=== PATIENT | male | born 1945 | race Caucasian/White ===

== ENCOUNTER 2017-07-16 20:56 | Inpatient (IN) | payer OTHER, MEDICARE ==
[~2017-07-16] VITALS: Ht 182.9 cm; Wt 131.1 kg
[~2017-07-16 20:56] MED LIST: CYCLOBENZAPRINE10 MG PO; CYMBALTA60 MG PO; GABAPENTIN300 MG PO; LANTUS SOL100 UNIT/1 SUB-Q; LASIX20 MG PO; LISINOPRIL10 MG PO; METFORMIN HCL1000 MG PO; METOPROLOL TART25 MG PO; NORCO 5-325 TA1 EACH PO; NOVOLOG FL100 UNIT/1 SUB-Q; OMEPRAZOLE20 MG PO
[2017-07-16] MEDS ORDERED: ACETAMINOPHEN500 M1 PO (21:52)
[2017-07-17] MEDS ORDERED: CIPROFLOXACIN500 MG PO (14:44)
[2017-07-17] MEDS ORDERED: VENTOLIN HFA18 GM INH (14:53)
[2017-07-17] MEDS ORDERED: ASCORBIC ACID250 MG PO (14:53)
[2017-07-17] MEDS ORDERED: ASPIR 8181 MG PO (14:54)
[2017-07-17] MEDS ORDERED: BACITRACIN3.5 GM TOP (14:55)
[2017-07-17] MEDS ORDERED: CITRUS CALCIUM +1 EA PO (14:55)
[2017-07-17] MEDS ORDERED: SANTYL30 GM TOP (14:58)
[2017-07-17] MEDS ORDERED: B-12500 MCG PO (15:01)
[2017-07-17] MEDS ORDERED: BENADRYL25 MG PO (15:02)
[2017-07-17] MEDS ORDERED: DOK100 MG PO (15:04)
[2017-07-17] MEDS ORDERED: DURAGESIC1 EACH TD (15:05)
[2017-07-17] MEDS ORDERED: FERROUS SULFAT325 MG PO (15:08)
[2017-07-17] MEDS ORDERED: GLUCAGON EMERGEN1 MG INJ (15:10)
[2017-07-17] MEDS ORDERED: NORCO 5-325 TA1 EACH PO (15:12)
[2017-07-17] MEDS ORDERED: HYDROCORTISONE30 G1 TOP (15:14)
[2017-07-17] MEDS ORDERED: EUCERIN CREME120 GM TOP (15:15)
[2017-07-17] MEDS ORDERED: IBUPROFEN200 MG PO (15:16)
[2017-07-17] MEDS ORDERED: ACTOS30 MG PO (16:16)
[2017-07-17] MEDS ORDERED: PRAVACHOL40 MG PO (16:16)
[2017-07-17] MEDS ORDERED: PROBIOTIC1 EAC1 PO (16:17)
[2017-07-17] MEDS ORDERED: ATHLETE'S FOOT15 G1 TOP (16:17)
[2017-07-17] MEDS ORDERED: LORATADINE10 MG PO (16:19)
[2017-07-17] MEDS ORDERED: PAIN RELIEF TOP (16:20)
[2017-07-17] MEDS ORDERED: DAILY MULTIPLE1 EACH PO (16:21)
[2017-07-17] MEDS ORDERED: MUPIROCIN22 GM TOP (16:23)
[2017-07-17] MEDS ORDERED: HYALURONIC ACI1 EACH PO (16:51)
[2017-07-17] MEDS ORDERED: DULCOLAX5 MG PO (16:52)
[2017-07-17] MEDS ORDERED: SENNOSIDES8.6 MG PO (16:52)
--- NOTE | 2017-07-17 22:59 | EKG ---
[facility] [address] [facility] [place] [address] Signed Sinus tachycardia with occasional premature ventricular complexes Low voltage QRS Borderline ECG No previous ECGs available Confirmed by HENRIQUE CARDOSO MD ([id number] on 07/17/2017 10:59:11 PM Electronically Signed By: HENRIQUE CARDOSO MD 07/17/17 2259 PATIENT NAME: SHERYL HENDRIX Electrocardiogram DATE OF : 49 PHYSICIAN: HENRIQUE CARDOSO MD REPORT #: [id number] REPORT IS CONFIDENTIAL AND NOT TO BE RELEASED WITHOUT AUTHORIZATION
[2017-07-19] MEDS ORDERED: TAMIFLU75 MG PO (09:21)
[2017-07-19] MEDS ORDERED: LEVAQUIN750 MG PO (09:24)
== END 2017-07-19 11:00 | disposition home or self-care (01) | DRG 872 ==
LOC: ED 20:56 → CCU 20:58 → MS 07-18 12:10
PROVIDERS: ADMIT Internal Medicine
DX: A41.9 Sepsis, unspecified organism (principal); M86.60 Other chronic osteomyelitis, unspecified site; I10 Essential (primary) hypertension; K21.9 Gastro-esophageal reflux disease without esophagitis; M54.9 Dorsalgia, unspecified; R53.81 Other malaise; G47.33 Obstructive sleep apnea (adult) (pediatric); E11.40 Type 2 diabetes mellitus with diabetic neuropathy, unspecified
CPT/HCPCS: 36415; 51701; 71010; 71020; 71045; 80053; 81001; 83605; 83735; 85025; 87040; 87502; 93005; 93010; 94667; 94668; 96361; 96374; 96375; 97162; 99285; G8978; G8979; J0456; J0692; J0696; J1650; J2270; J2405; J3370; J7030; J7040; J7120